=== PATIENT | female | born 1965 | race Caucasian/White ===

== ENCOUNTER 2018-10-19 04:19 | Emergency (ER) | payer BC, OTHER ==
[~2018-10-19] VITALS: Ht 165.1 cm; Wt 83.9 kg
[~2018-10-19 04:19] MED LIST: AMOX1TAB61 PO; HYDR-3164 PO; NORE1TAB76 PO
[2018-10-19 04:20] VITALS: BP 136/88
[2018-10-19] MEDS ORDERED: AMOXICILLIN/K CLAV 875/125MG TABLET. PO ONE (04:45)
[2018-10-19] MEDS ORDERED: HYDROcodone/APAP 10/325 1 TAB TABLET PO ONE (04:45)
[2018-10-19] MEDS ORDERED: LIDOCAINE 1%/EPI 1:100,000 20 ML VIAL. INJ ONE (04:45)
--- NOTE | 2018-10-19 05:06 | PHYS DOC ---
Past Medical History Past Medical History: No Pertinent History Past Surgical History: Cholecystectomy, , Tonsillectomy Alcohol Use: Occasionally Drug Use: None Adult General Chief Complaint Chief Complaint: ANIMAL BITE HPI HPI Patient is a 53 year old -year-old female who presents with the laceration to the back of her left here in smaller lacerations to the outer earlobe. Patient states she was in bed when started to get a fight and a large dog tore the back of her ear when it pawed her while sleeping. Patient also has some smaller laceration to the rim of the outer ear lobe. The injury occurred just prior to ED arrival. No other acute symptoms or complaints. [] Review of Systems Review of Systems ROS as per HPI All other systems were reviewed and found to be within normal limits, except as documented in this note. Current Medications Current Medications Current Medications Medications (Trade) Dose Ordered Sig/Terri Start Time Stop Time Status Last Admin Dose Admin Acetaminophen/ Hydrocodone Bitart (Lortab 10/325) 1 tab 1X ONCE 10/19/18 04:45 10/19/18 04:46 DC 10/19/18 04:47 1 TAB Amoxicillin/ Clavulanate Potassium (Augmentin 875/ 125mg) 1 tab 1X ONCE 10/19/18 04:45 10/19/18 04:46 DC 10/19/18 04:47 1 TAB Lidocaine/ Epinephrine (LIDOCAINE 1%-EPI 1:100,000 Multi-Dose) 20 ml 1X ONCE 10/19/18 04:45 10/19/18 04:46 DC 10/19/18 04:47 20 ML Allergies Allergies Allergies Coded Allergies Type Severity Reaction Last Updated Verified No Known Drug Allergies 11/26/13 No Physical Exam Physical Exam Constitutional: Well developed, well nourished, no acute distress, non-toxic appearance. [] HENT: Normocephalic, atraumatic, bilateral external ears normal, nose normal. [] Eyes: PERRLA, EOMI, conjunctiva normal. [] Neck: Normal range of motion, no tenderness. [] Cardiovascular:Heart rate regular rhythm, no murmur. [] Lungs & Thorax: Bilateral breath sounds clear to auscultation [] Abdomen: Bowel sounds normal, soft, no tenderness. [] Skin: Warm, dry. [] Back: No tenderness. [] Extremities: No tenderness. [] Neurologic: Alert and oriented X 3, normal motor function, normal sensory function, no focal deficits noted. [] Psychologic: Affect normal, judgement normal, mood normal. [] Current Patient Data Vital Signs Vital Signs Date Time Temp Pulse Resp B/P (MAP) Pulse Ox O2 Delivery O2 Flow Rate FiO2 10/19/18 04:47 18 95 Room Air 10/19/18 04:20 98.0 89 136/88 (104) 98.0 EKG EKG [] Radiology/Procedures Radiology/Procedures Laceration procedure Note Patient has approximately 2.5 cm full thickness, curve laceration to posterior to the left ear through the attachment of scalp. Laceration is clean, bleeding is controlled. Wound was anesthetized with 2.5 ML's of 1% lidocaine with epinephrine then copiously irrigated with Roxicet with irrigating high pressure syringe. Wound was then loosely closed with #4, 5-0 Prolene, simple running sutures. Typical wound care instructions were provided. [] Course & Med Decision Making Course & Med Decision Making Pertinent Labs and Imaging studies reviewed. (See chart for details) [Wound cleansed closed and antibiotics given. Patient confirms that her dogs are indoor dogs have not had potential outdoor rabies exposure. Typical wound care instructions given. Return precautions reviewed. Patient verbalizes understanding and agreement discharge instructions prior to departure.] Dragon Disclaimer Dragon Disclaimer This electronic medical record was generated, in whole or in part, using a voice recognition dictation system. Departure Departure Impression: Primary Impression: Laceration of left earlobe Additional Impression: Animal bite of face Disposition: 01 HOME, SELF-CARE Condition: GOOD Referrals: ASHLEE CUELLO (PCP) Patient Instructions: Animal Bite, [id number], Laceration Care, Adult, Easy- to-Read Scripts Amoxicillin/Potassium Clav (AUGMENTIN 875-125 TABLET) 1 Each Tablet 1 TAB PO BID, #14 TAB Prov: CINDY MADDEN DO 10/19/18 Problem Qualifiers CINDY MADDEN DO Oct 19, 2018 05:05
[2018-10-19] MEDS ORDERED: AMOX1TAB61 PO (05:27)
== END 2018-10-19 05:31 | disposition home or self-care (01) ==
LOC: ER 04:19
DX: S01.312A Laceration without foreign body of left ear, initial encounter (principal); Z90.49 Acquired absence of other specified parts of digestive tract; Z98.890 Other specified postprocedural states; Z90.89 Acquired absence of other organs; W54.0XXA Bitten by dog, initial encounter; Y93.89 Activity, other specified; Y92.89 Other specified places as the place of occurrence of the external cause; Y99.8 Other external cause status
CPT/HCPCS: 12011; 99283; J3490